=== PATIENT | female | born 1970 | race Caucasian/White ===

== ENCOUNTER 2018-05-15 09:05 | Day surgery (SDC) | payer OTHER ==
[~2018-05-15] VITALS: Ht 170.2 cm; Wt 109.8 kg
[~2018-05-15 09:05] MED LIST: LEVOTHYROXINE88 MCG PO; OMEPRAZOLE20 MG PO; OXYCODONE HCL10 MG PO; TRAZODONE HCL50 MG PO; TROSPIUM CHLORI20 MG PO; ZOLOFT100 MG PO
--- NOTE | 2018-05-15 11:21 | NUR ---
05/15/18 1121 Angelika Carrillo 1104- PT ARRIVES TO PACU EASILY AROUSABLE TO VOICE. PT REPORTS NO PAIN OR NAUSEA. RESP EVEN AND UNLABORED. OXYGEN SAT HIGH 90'S ON 4L VIA NC. 1107- OXYGEN TURNED OFF. OXYGEN SAT MID TO HIGH 90'S ON RA. 1109- PT REPORTS SHE FEELS LIKE SHE HAS TO URINATE. PT PLACED ON A BED MCHGEE AND UNABLE TO VOID AT THIS TIME. 1113- PT BLADDER SCANNED FOR 0ML. 1117- PT REPORTS THE SENSATION TO URINATE IS DECREASING.
[2018-05-15] MEDS ORDERED: BACTRIM DS TAB1 EACH PO (11:28)
--- NOTE | 2018-05-15 12:23 | OR ---
[facility] [address] [place], [place] [address] Signed DATE OF OPERATION: 05/15/2018 SURGEON: Keyla Constantino MD PREOPERATIVE DIAGNOSIS: Severe overactive bladder. POSTOPERATIVE DIAGNOSIS: Severe overactive bladder. NAMES OF PROCEDURES: 1. Diagnostic cystoscopy. 2. Botox bladder injection, 100 units. ANESTHESIA: MAC. ESTIMATED BLOOD LOSS: None. COMPLICATIONS: None. SPECIMENS: None. DRAINS: None. INDICATIONS FOR PROCEDURE: Ms. Sorensen is a very pleasant 47-year-old female with a history of severe overactive bladder symptoms. She has tried multiple anticholinergic medications with minimal to no significant improvement in her symptoms. She has now decided that she would like to pursue elective Botox bladder injection of 100 units. After discussion of the risks and benefits including the risk of worsening UTIs as well as urinary retention, she has agreed to proceed. OPERATIVE FINDINGS: 1. On cystoscopy, there was no evidence of any suspicious masses, lesions, or stones. She has diffuse grade 1 to 2 bladder wall trabeculation. Bilateral ureteral orifices Electronically Signed By: KEYLA CONSTANTINO MD 05/15/18 1223 PATIENT NAME: ADONIS SORENSEN OPERATIVE REPORT DATE OF : 70 REPORT #: [id number] PHYSICIAN: KEYLA CONSTANTINO MD PCP: OTHER PCP REPORT IS CONFIDENTIAL AND NOT TO BE RELEASED WITHOUT AUTHORIZATION [facility] [address] [place] [address], [place] [address] Signed are in their normal anatomic location and effluxing clear urine. There is no evidence of ISD. 2. A total of 100 units of botulinum toxin was injected into the patient's bladder in 0.5 mL aliquots. This was performed without difficulty. DESCRIPTION OF PROCEDURE: After informed consent was obtained, the patient was taken back to the operating room. She was transferred [facility] the [facility] to the operating room table, where MAC anesthesia was induced. She was placed in a dorsal lithotomy position and genitalia were prepped and draped in standard sterile fashion. Using a 30-degree lens on a 22.5-Kinyarwanda introducer, a rigid cystoscope was inserted through the urethra and into her bladder under direct visualization. Panendoscopic views of bladder were then obtained including the lateral urbina, floor, dome, and trigone areas. Please see above findings. I then advanced the [employer] needle into the bladder. The needle was protracted to a level of 3 mm. Injections of the botulinum toxin reconstituted using sterile saline were then performed. Each injection consisted of 0.5 mL, with a total of 20 injections made throughout the lower aspect of the posterior and lateral urbina of the bladder. I avoided both the trigone and dome portions of the bladder. The injections were performed without difficulty. Saline was then used to inject at the end of the procedure in order to utilize any botulinum toxin present still within the [employer] needle. Once the injections were complete, the patient's bladder was then drained. Prior to draining the bladder, the small blood clots associated with the injections were irrigated from the patient's bladder. Once the cystoscope was removed, the procedure was terminated. The patient tolerated the procedure well without any complication. She will now be transferred to the postanesthesia care unit in stable condition. DISPOSITION: I discussed the details of today's procedure with the patient's and answered all of his questions. She will be sent home on 5 days with Bactrim double strength for prophylaxis. She will be scheduled to return to clinic in approximately 8 weeks for her first postoperative evaluation. MD LEONIE Dukes/MODL /[id number] Electronically Signed By: KEYLA CONSTANTINO MD 05/15/18 1223 PATIENT NAME: ADONIS SORENSEN GENNA OPERATIVE REPORT DATE OF : 70 REPORT #: [id number] PHYSICIAN: KEYLA CONSTANTINO MD PCP: OTHER PCP REPORT IS CONFIDENTIAL AND NOT TO BE RELEASED WITHOUT AUTHORIZATION [facility] [address] [place] [address] Yu[place] [address] Signed Copies: ~ Electronically Signed By: KEYLA CONSTANTINO MD 05/15/18 1223 PATIENT NAME: ADONIS SORENSEN OPERATIVE REPORT DATE OF : 70 REPORT #: [id number] PHYSICIAN: KEYLA CONSTANTINO MD PCP: OTHER PCP REPORT IS CONFIDENTIAL AND NOT TO BE RELEASED WITHOUT AUTHORIZATION
== END 2018-05-15 11:43 | disposition home or self-care (01) ==
LOC: DS 09:05 → OPS 09:05 → DS 09:25 → OPS 09:25
PROVIDERS: Urology
PROC: 3E0K8GC Introduction of Other Therapeutic Substance into Genitourinary Tract, Via Natural or Artificial Opening Endoscopic (ICD-10-PCS; principal; 2018-05-15 09:25)
DX: N32.81 Overactive bladder (principal); N13.30 Unspecified hydronephrosis; E03.9 Hypothyroidism, unspecified; Z88.5 Allergy status to narcotic agent; Z79.899 Other long term (current) drug therapy
CPT/HCPCS: 00910; J0585; J0696; J2704; J3010; J7120